=== PATIENT | female | born 1985 | race Two or more races ===

== ENCOUNTER 2020-04-24 16:25 | Emergency (ER) | payer OTHER ==
[~2020-04-24] VITALS: Ht 160 cm; Wt 68.2 kg
[2020-04-24] MEDS ORDERED: HYDROcodone/APAP 5/325MG 1 TAB TABLET PO ONE (16:45)
[2020-04-24] MEDS ORDERED: CYCLOBENZAPRINE 10 MG TABLET. PO ONE (16:45)
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
[2020-04-24] MEDS ORDERED: NAPR-514 PO (18:08)
[2020-04-24] MEDS ORDERED: CYCL10TA2 PO (18:08)
[2020-04-24 18:30] VITALS: BP 117/84
== END 2020-04-24 19:00 | disposition home or self-care (01) ==
LOC: ER 16:25
DX: G89.11 Acute pain due to trauma (principal); M25.512 Pain in left shoulder; M25.572 Pain in left ankle and joints of left foot; M54.5 Low back pain; V98.8XXA Other specified transport accidents, initial encounter; Y93.89 Activity, other specified; Y92.89 Other specified places as the place of occurrence of the external cause; Y99.8 Other external cause status
CPT/HCPCS: 70450; 72125; 72128; 72131; 73030; 73610; 99285

== ENCOUNTER → 2021-02-21 | Outpatient (CLI) | payer OTHER ==
[~2021-02-21] MED LIST: CYCL10TA19 PO; NAPR-514 PO
--- NOTE | 2021-02-21 14:58 | RAD ---
EXAM: Sonographic guided left thyroid fine-needle aspiration. HISTORY: 35-year-old female presents for fine-needle aspiration of a left thyroid nodule. TECHNIQUE: The risks of the procedure discussed with the patient and written and verbal consent was o btained. A timeout was performed. Sonographic imaging of the left thyroid lobe was performed and the nodule concern measuring approximately 1.8 cm in maximum dimension was identified. The skin overlying this lesion was sterilely prepped, draped and infiltrated with 1 percent lidocaine. Multiple passes were made into the lesion with 25-gauge needles using sonographic guidance. And the aspirate was subm itted to the department of pathology for analysis. Made compression was maintained until hemostasis w as achieved. A sterile bandage was placed. The patient tolerated the procedure without complication a nd was discharged in stable condition. IMPRESSION: Sonographic guided fine-needle aspiration of a 1.8 cm left thyroid nodule. Electronically signed by: Mildred Mart MD (02/21/2021 2:56 PM) [id number]
== END | disposition home or self-care (01) ==
LOC: US 14:23
PROVIDERS: ATTEND Otolaryngology
DX: E04.1 Nontoxic single thyroid nodule (principal)
CPT/HCPCS: 10005; C1819